=== PATIENT | male | born 1970 | race Caucasian/White ===

== ENCOUNTER 2024-05-30 09:29 | Outpatient (AMB) | payer MEDICARE, MEDICAID, SELFPAY ==
--- NOTE | 2024-05-30 09:34 | HO.SPINEOV ---
Vital Signs 05/30/24 09:41 Height 5 ft 6 in Weight 215 lb BMI 34.7 Intake Visit Reasons: second opinion/degenerative disc Intake Note: Mr. Miller is here today for a second opinion on his back pain. 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 HPI: This 54-year-old male is suffering from right-sided back pain and midthoracic back pain. Sometimes the pain radiates down his right leg. OxyContin used to work for his symptoms in the past. He has been seen by [facility] who told him he had a discal tear which is not severe enough for surgery. They propose to do injections. The following conservative treatment options were tried without success antiinflammatories, tylenol, physician guided home exercise plan, cortisone shots Physical Exam: Pleasant male. Not in obvious agony. No abnormalities for hip exam. Negative stress test for the SI joint. Straight leg raise is negative. No motor or sensory deficits. Radiological Studies: MRI of the lumbar spine and thoracic spine done at [facility] are basically normal. Impression/Plan: This 54-year-old male suffering from chronic back pain for which there is no surgical cause. I reviewed the imaging with the patient and pointed out that there is no nerve compression or spinal stenosis. The quality of his discs are in my opinion excellent, especially for his age. I have no further therapy to offer. Thank you for allowing me to participate in your patients care. total time spent was 40 minutes in counseling ,coordination of plan, personal review of imaging, ubsequent plan Baldo Agosto MD, PhD Spine Fellowship Trained Neurosurgeon Director, [facility] Coding Level of Care Code New Pt Level 3 (50983) Diagnoses Chronic back pain greater than 3 months duration M54.9; G89.29
[2024-05-30 09:41] VITALS: BMI 34.7
== END 2024-05-30 10:45 | disposition home or self-care (01) ==
PROVIDERS: PCP Internal Medicine; Visit Provider Neurological Surgery
DX: M54.9 Dorsalgia, unspecified (principal); G89.29 Other chronic pain
CPT/HCPCS: 99203

== ENCOUNTER → 2024-05-30 09:29 | Outpatient (BNVA) | payer MEDICARE, MEDICAID, SELFPAY | PROVIDERS: PCP Internal Medicine; Visit Provider Neurological Surgery | DX: M54.9 Dorsalgia, unspecified (principal); G89.29 Other chronic pain | CPT/HCPCS: 99202 ==